=== PATIENT | female | born 1985 | race Caucasian/White ===

== ENCOUNTER 2020-12-25 15:01 | Outpatient (CLI) | payer BC ==
[2020-12-26 11:54] LABS: SARS-CoV-2 PCR by NAA Not Detected (NotDetected)
== END 2020-12-25 15:02 | disposition home or self-care (01) ==
LOC: CSHLAB 15:01
PROVIDERS: ATTEND Obstetrics & Gynecology
DX: Z01.812 Encounter for preprocedural laboratory examination (principal); Z20.822 Contact with and (suspected) exposure to COVID-19
CPT/HCPCS: U0003; U0005

== ENCOUNTER 2020-12-29 05:41 | Inpatient (IN) | payer BC ==
[2020-12-29] MEDS ORDERED: NS w/ Oxytocin 30 units 500 ML IV SCH (06:26)
[2020-12-29] MEDS ORDERED: NS w/ Oxytocin 30 units 500 ML IVPB SCH (06:26)
[2020-12-29] MEDS ORDERED: Lactated Ringer's 1,000 ML IV SCH (06:26)
[2020-12-29] MEDS ORDERED: hydrALAZINE 20 MG/ML VIAL SLOW IVP PRN ×2 (06:26→14:45)
[2020-12-29] MEDS ORDERED: Lidocaine 1% (PF) 30 ML VIAL SC PRN (06:26)
[2020-12-29] MEDS ORDERED: Ibuprofen 800 MG TAB PO PRN (06:26)
[2020-12-29] MEDS ORDERED: Ondansetron PF 4 MG/2 ML Vial IVP PRN ×2 (06:26→10:21)
[2020-12-29] MEDS ORDERED: Promethazine HCl 25 MG/ML VIAL IM PRN ×2 (06:26→10:21)
[2020-12-29] MEDS ORDERED: Acetaminophen 500 MG TAB PO PRN (06:26)
[2020-12-29 06:31] VITALS: BMI 25.3
[2020-12-29 06:50] LABS: Hemoglobin 12.5 g/dL (12.0-15.5); Mean Corpuscular Hemoglobin 32.4 pg (27.0-33.0); Mean Corpuscular Volume 95.3 fl (81.6-98.3); Platelet Count 220 10x3/uL (150-450); RBC Distribution Width 13.2 % (11.5-14.5); Red Blood Cell (RBC) Count 3.86 10x6/uL (3.90-5.03)
[2020-12-29 07:27] LABS: Syphilis Antibody Nonreactive (Nonreactive); Syphilis Antibody Index 0.04 S/CO (<1.00 Non-Reactive)
[2020-12-29 07:28] LABS: Hep B Surf Ag Non-Reactive S/CO (NonReactive)
[2020-12-29 08:10] LABS: HBSAg Index 0.17 S/CO (0-0.99)
[2020-12-29] MEDS ORDERED: Fentanyl 2 mcg/Bup 0.1% Cadd 100 ML ONE (09:34)
[2020-12-29] MEDS ORDERED: ePHEDrine Sulfate 50 MG/10 ML VIAL SLOW IVP PRN (10:21)
[2020-12-29] MEDS ORDERED: diphenhydrAMINE 50 MG/ML VIAL IVP PRN (10:21)
[2020-12-29] MEDS ORDERED: Hydrocerin (Eucerin) Cream 120 gm Jar TOP PRN (10:21)
[2020-12-29] MEDS ORDERED: Lactated Ringer's 500 ML IV PRN (10:21)
[2020-12-29] MEDS ORDERED: Acetaminophen 325 MG TAB PO PRN (10:21)
[2020-12-29] MEDS ORDERED: Naloxone HCl 0.4 mg/ml Vial IVP PRN ×2 (10:21)
[2020-12-29] MEDS ORDERED: Communication Order-Pharmacy FS PRN (10:30)
[2020-12-29] MEDS ORDERED: Fentanyl 2 mcg/Bupivacaine 0.1% Cassette 100 ML EPIDURAL SCH (10:30)
[2020-12-29] MEDS ORDERED: Zolpidem Tartrate 5 MG TAB PO PRN (14:45)
[2020-12-29] MEDS ORDERED: Bisacodyl 10 MG SUPP PR PRN (14:45)
[2020-12-29] MEDS ORDERED: Lanolin Ointment 7 GM TUBE TOP PRN (14:45)
[2020-12-29] MEDS ORDERED: Benzocaine-Menthol 82.5 ML CAN TOP PRN (14:45)
[2020-12-29] MEDS ORDERED: Milk Of Magnesia 30 ML UDCUP PO PRN (14:45)
[2020-12-29] MEDS ORDERED: Misoprostol 200 MCG TAB VAG PRN (14:45)
[2020-12-29] MEDS ORDERED: diphenhydrAMINE 25 MG CAP PO PRN (14:45)
[2020-12-29] MEDS ORDERED: traMADol HCl 50 MG TAB PO PRN (14:45)
[2020-12-29] MEDS: Ferrous Sulfate 325 MG TAB PO SCH (17:20)
[2020-12-29] MEDS ORDERED: Ibuprofen 800 MG TAB PO SCH (18:00)
[2020-12-29] MEDS: Docusate Calcium (SURFAK) 240 MG CAP PO SCH (20:59)
[2020-12-30] MEDS ORDERED: Ibuprofen 800 MG TAB PO SCH ×2 (02:00→06:00)
[2020-12-30 07:53] VITALS: BP 131/75; TEMP 98.9
[2020-12-30] MEDS: Ferrous Sulfate 325 MG TAB PO SCH (08:04)
[2020-12-30] MEDS: Docusate Calcium (SURFAK) 240 MG CAP PO SCH (09:03)
[2020-12-30] MEDS ORDERED: Boostrix 0.5 ML (Tdap) VIAL IM ONE (14:45)
== END 2020-12-30 13:25 | disposition home or self-care (01) | DRG 807 ==
LOC: CSHLD 05:41 → CSHPP 14:56
PROVIDERS: ADMIT Obstetrics & Gynecology; ATTEND Obstetrics & Gynecology
PROC: 10E0XZZ Delivery of Products of Conception, External Approach (ICD-10-PCS; principal; 2020-12-29)
PROC: 0UQGXZZ Repair Vagina, External Approach (ICD-10-PCS; 2020-12-29)
DX: O70.0 First degree perineal laceration during delivery (principal); Z37.0 Single live birth; Z3A.39 39 weeks gestation of pregnancy; Z20.822 Contact with and (suspected) exposure to COVID-19
CPT/HCPCS: 51702; 85027; 85461; 86780; 86850; 86870; 86900; 86901; 87340; 90384; 96372

== ENCOUNTER 2021-01-08 23:03 | Emergency (ER) | payer BC ==
[2021-01-09 00:09] LABS: #Basophils 0.1 10x3/uL (0.0-0.2); #Eosinphils 0.2 10x3/uL (0.0-0.5); #Monocytes 0.6 10x3/uL (0.0-1.1); #Neutrophils 4.1 10x3/uL (1.5-8.4); %Basophils 1.1 % (0.0-2.0); %Lymphocytes 33.9 % (18.0-47.0); %Monocytes 7.7 % (0.0-10.0); Hemoglobin 13.5 g/dL (12.0-15.5); Mean Corpuscular HGB CONC 34.1 g/dL (32.0-36.0); Mean Corpuscular Hemoglobin 32.5 pg (27.0-33.0); Mean Corpuscular Volume 95.4 fl (81.6-98.3); Mean Platelet Volume 8.5 fl (7.4-10.4); Platelet Count 288 10x3/uL (150-450); RBC Distribution Width 12.4 % (11.5-14.5); Red Blood Cell (RBC) Count 4.15 10x6/uL (3.90-5.03); White Blood Cell (WBC) Count 7.4 10x3/uL (3.5-10.5)
[2021-01-09 00:34] LABS: ALT (SGPT) 24 U/L (8-55); AST (SGOT) 26 U/L (5-34); Albumin 3.8 g/dL (3.5-5.0); Alkaline Phosphatase 157 U/L (40-110); Anion Gap 13 mmol/L (10-20); BUN (Urea Nitrogen) 20 mg/dL (7.0-18.7); Bilirubin, Total 0.3 mg/dL (0.2-1.2); Calc. Creatinine Clearance 0 mL/min (70-130); Carbon Dioxide 21 mmol/L (22-29); Chloride 109 mmol/L (98-107); Globulin 2.9 g/dL (2.4-3.5); Glucose 88 mg/dL (70-105); Potassium 4.5 mmol/L (3.5-5.1); Protein, Total 6.7 g/dL (6.0-8.3); Sodium 138 mmol/L (136-145)
[2021-01-09 00:36] LABS: INR-International Normal Ratio 0.9; Prothrombin Time 10.3 sec (9.5-12.1)
[2021-01-09 00:40] LABS: Bilirubin Neg (Negative); Blood, Urine 250 (Negative); Clarity Clear (Clear); Glucose, Urine (Dipstick) Normal (Negative); Ketone, Urine Negative (Negative); Leukocyte 500 (Negative); Nitrite Negative (Negative); Protein, Urine (Dipstick) 30 mg/dl (Neg-Trace); Specific Gravity, Urine 1.005 (1.002-1.036); Urobilinogen Normal mg/dL (Less than 2)
[2021-01-09 01:00] LABS: Bacteria/HPF Rare-Few HPF (None Seen); Squamous Epithelial 0-3 HPF (0-3)
== END 2021-01-09 02:39 | disposition home or self-care (01) ==
LOC: CSHERS 23:03
DX: O72.1 Other immediate postpartum hemorrhage (principal); N39.0 Urinary tract infection, site not specified; I10 Essential (primary) hypertension; R00.0 Tachycardia, unspecified; E06.3 Autoimmune thyroiditis
CPT/HCPCS: 80053; 81003; 81015; 85025; 85610; 86900; 86901; 90384; 96372; 99284